=== PATIENT | male | born 1960 | race Caucasian/White ===

== ENCOUNTER 2020-01-14 10:58 | Emergency (ER) | payer MEDICAID ==
[~2020-01-14] VITALS: Ht 172.7 cm; Wt 74.8 kg
[2020-01-14 11:49] VITALS: BP 107/69
[2020-01-14] MEDS ORDERED: HYDROcodone-ACET 7.5/325MG TAB PO ONE (12:15)
== END 2020-01-14 13:29 | disposition home or self-care (01) ==
LOC: ER 10:58
DX: S52.501A Unspecified fracture of the lower end of right radius, initial encounter for closed fracture (principal); M54.6 Pain in thoracic spine; W17.89XA Other fall from one level to another, initial encounter; Y93.89 Activity, other specified; Y92.89 Other specified places as the place of occurrence of the external cause; Y99.8 Other external cause status
CPT/HCPCS: 29125; 72070; 73070; 73100